=== PATIENT | male | born 1990 | race Caucasian/White ===

== ENCOUNTER 2017-11-07 15:00 | Outpatient (RCR) | payer OTHER ==
[2017-09-17 15:32] VITALS: BP 130/75; PULSE 75; TEMP 98
[2017-10-18 15:42] VITALS: BP 112/57; PULSE 45; TEMP 98
[2017-10-31 14:28] VITALS: BP 109/55; PULSE 52; TEMP 97.8
[~2017-11-07] VITALS: Ht 180.3 cm; Wt 77.0 kg
[~2017-11-07 15:00] MED LIST: PROAIR HFA0.09 MG/AC IH
== END 2017-12-16 | disposition home or self-care (01) ==
LOC: EUO
DX: J45.909 Unspecified asthma, uncomplicated (principal)
CPT/HCPCS: J2357

== ENCOUNTER 2018-02-26 12:30 | Outpatient (RCR) | payer OTHER ==
[2018-02-04 15:08] VITALS: BP 121/65; PULSE 58; TEMP 97.8
[~2018-02-26] VITALS: Ht 180.3 cm; Wt 74.0 kg
[2018-02-26 12:39] VITALS: BP 99/52; PULSE 59; TEMP 97.6
== END 2018-02-26 14:11 | disposition home or self-care (01) ==
LOC: EUO 12:30
DX: J45.909 Unspecified asthma, uncomplicated (principal)
CPT/HCPCS: J2357